=== PATIENT | female | born 1985 | race Caucasian/White ===

== ENCOUNTER 2017-09-28 16:22 | Emergency (ER) | payer OTHER ==
[2017-09-28] MEDS ORDERED: ACETAMINOPHEN 325 MG TABLET (FP) PO ONE (16:34)
--- NOTE | 2017-09-28 16:34 | PDOC ---
Rapid Medical Evaluation Time Seen by Provider: 09/28/17 16:29 Medical Evaluation: Allergies Allergy/AdvReac Type Severity Reaction Status Date / Time No Known Allergies Allergy Verified 09/28/17 16:30 09/28/17 16:30 The patient presents with a chief complaint of: Headache, cough, sore throat, back pain since last night. Admits to subjective fevers at home. 35 weeks . I have performed a brief in-person evaluation of this patient; Pertinent physical exam findings: ambulatory, in no respiratory distress. Afebrile. Throat with minor erythema posteriorly. I have ordered the following: Tylenol, Rapid strep The patient will proceed to the ED for further evaluation.
[2017-09-28 16:35] VITALS: BP 99/66; PULSE 127; TEMP 99.4; BMI 27.8
--- NOTE | 2017-09-28 16:54 | PDOC ---
History of Present Illness - General Chief Complaint: Cold Symptoms Stated Complaint: COLD SYMPTOMS/35 WKS Time Seen by Provider: 09/28/17 16:29 History Source: Patient Exam Limitations: No Limitations - History of Present Illness Initial Comments: 09/28/17 16:50 31 yr female states she is 35 weeks and with 2 days fever, body aches sore throat. no abd pain , neg vaginal discharge bleeding or urinary complaints. no sick contacts. Pt did not have FLU vaccine. Past History - Past Medical History Allergies/Adverse Reactions: Allergies Allergy/AdvReac Type Severity Reaction Status Date / Time No Known Allergies Allergy Verified 09/28/17 16:30 Home Medications: Ambulatory Orders Oseltamivir Phosphate [Tamiflu] 75 mg PO BID #10 capsule 09/28/17 Oseltamivir Phosphate [Tamiflu] 75 mg PO BID #10 capsule 09/28/17 COPD: No Other medical history: DENIES. - Suicide/Smoking/Psychosocial Hx Smoking History: Never smoked *Physical Exam - Vital Signs Last Vital Signs Temp Pulse Resp BP Pulse Ox 99.4 F 127 H 19 99/66 97 09/28/17 16:30 09/28/17 16:30 09/28/17 16:30 09/28/17 16:30 09/28/17 16:30 - Physical Exam General Appearance: Yes: Nourished, Appropriately Dressed HEENT: positive: EOMI, SARAH, Normal Voice Neck: positive: Supple. negative: Rigid Respiratory/Chest: positive: Lungs Clear, Normal Breath Sounds Cardiovascular: positive: Regular Rhythm, Regular Rate Gastrointestinal/Abdominal: positive: Normal Bowel Sounds, Soft, Other (gravid abdomen ) Musculoskeletal: positive: Normal Inspection Extremity: positive: Normal Capillary Refill, Normal Inspection, Normal Range of Motion Integumentary: positive: Normal Color, Dry, Warm Neurologic: positive: Fully Oriented, Alert, Normal Mood/Affect, Normal Response , Motor Strength 5/5 ED Treatment Course - Medications Given in the ED: ED Medications Discontinued Medications Generic Name Dose Route Start Last Admin Trade Name Freq PRN Reason Stop Dose Admin Acetaminophen 650 mg 09/28/17 16:34 09/28/17 16:44 Tylenol - PO 09/28/17 16:35 650 mg ONCE ONE Administration Medical Decision Making - Medical Decision Making 09/28/17 16:52 cc: fever, sore throat body aches 2 days no abd pain, neg vomit or diarrhea, neg urinary complaints pt is 35 weeks , no complications OB at [facility] will check rapid strep pt states active movement , has follow up care at [facility] no abd pain or diarrhea 09/28/17 17:12 *DC/Admit/Observation/Transfer Diagnosis at time of Disposition: Influenza-like illness - Discharge Dispostion Condition at time of disposition: Stable - Prescriptions Prescriptions: Oseltamivir Phosphate [Tamiflu] 75 mg PO BID #10 capsule Oseltamivir Phosphate [Tamiflu] 75 mg PO BID #10 capsule - Referrals Referrals: Milana Conway MD [Primary Care Provider] - - Patient Instructions Additional Instructions: drink at least 2 liters of water a day gatorade, broth , ice pops, regular diet. pleanty of rest at home take tylenol 650mg every 4-6hrs for fever and pain take Tamiflu for 5 days follow with your [employer] Monday for follow up or sooner if any worsening symptoms , return to the ER - Post Discharge Activity
== END 2017-09-28 17:25 | disposition home or self-care (01) ==
LOC: JERFT 16:22
DX: O26.891 Other specified pregnancy related conditions, first trimester (principal); O98.513 Other viral diseases complicating pregnancy, third trimester; J11.1 Influenza due to unidentified influenza virus with other respiratory manifestations; Z3A.35 35 weeks gestation of pregnancy
CPT/HCPCS: 87070; 87430; 99281-25

== ENCOUNTER 2017-11-02 07:35 | Inpatient (IN) | payer OTHER ==
[2017-11-02] MEDS ORDERED: DEXTROSE 5%-LACTATED RINGERS 1,000 ML IV ONE (08:10)
--- NOTE | 2017-11-02 08:31 | HP ---
Past Medical History - Admission Chief Complaint: Labor pain History of Present Illness: 31 yo @ 40 weeks gestation, EDC 11/02/17, admitted for labor pain. Upon admission, she was 4 cm dilated with intact membrane. History Source: Patient Limitations to Obtaining History: No Limitations - Past Medical History ...: 2 ...Para: 1 ...EDC by Vinayak: 11/02/17 - Past Surgical History Past Surgical History: Yes: None Hx Myomectomy: No Hx Transabdominal Cerclage: No - Smoking History Smoking history: Never smoked - Alcohol/Substance Use Hx Alcohol Use: No History of Substance Use: reports: None - Social History History of Recent Travel: No Home Medications - Allergies Allergies/Adverse Reactions: Allergies Allergy/AdvReac Type Severity Reaction Status Date / Time No Known Allergies Allergy Verified 11/02/17 01:25 - Home Medications Home Medications: Ambulatory Orders Vitamins (Sjr) - 1 tab PO DAILY 11/02/17 Review of Systems - Review of Systems Constitutional: reports: No Symptoms Eyes: reports: No Symptoms HENT: reports: No Symptoms Neck: reports: No Symptoms Cardiovascular: reports: No Symptoms Respiratory: reports: No Symptoms Gastrointestinal: reports: No Symptoms Genitourinary: reports: No Symptoms, Pain Breasts: reports: No Symptoms Reported Musculoskeletal: reports: No Symptoms Neurological: reports: No Symptoms Psychiatric: reports: No Symptoms Pain Intensity: 7 Physical Exam - Maternity Constitutional: Yes: Well Nourished Eyes: Yes: Conjunctiva Clear HENT: Yes: Atraumatic Neck: Yes: Supple Cardiovascular: Yes: Regular Rate and Rhythm Lungs: Clear to auscultation - Abdominal Exam/OB Number of Fetuses: Single Presentation: Vertex Contractions: Yes Regularity: Irregular - Vaginal Exam/OB Dilatation (cm): 4 Effacement (%): 90 Amniotic Membrane Status: Intact Station: -2 - Physical Exam Musculoskeletal: Yes: WNL ...Motor Strength: WNL Psychiatric: Yes: Alert, Oriented Problem List - Problems (1) 40 weeks gestation of Code(s): Z3A.40 - 40 WEEKS GESTATION OF Assessment/Plan Active labor Admit to L&D Analgesia as needed Anticipate
[2017-11-02] MEDS ORDERED: BUTORPHANOL TARTRATE 1 MG/ML VIAL IVPUSH PRN (08:34)
[2017-11-02] MEDS ORDERED: PROMETHAZINE HCL 25 MG/1 ML VIAL IVPB PRN (08:35)
[2017-11-02 08:40] VITALS: BMI 30.5
[2017-11-02 09:42] LABS: BASO % 0.4 % (0-2.0); EOS % 0.6 % (0-4.5); HEMATOCRIT 36.5 % (32.4-45.2); LYMPH % 15.5 % (8-40); MCH 34.2 pg (25.7-33.7); MCHC 35.8 g/dl (32.0-36.0); MEAN CELL VOLUME 95.5 fl (80-96); MEAN PLT VOLUME 8.4 fl (7.5-11.1); MONO % 5.9 % (3.8-10.2); NEUT % 77.6 % (42.8-82.8); PLATELET COUNT 245 K/MM3 (134-434); RBC 3.82 M/mm3 (3.60-5.2); RDW 13.6 % (11.6-15.6); WHITE BLOOD COUNT 8.7 K/mm3 (4.0-10.0)
[2017-11-02 09:56] LABS: ANION GAP 5 (8-16); BLOOD UREA NITROGEN 7 mg/dL (7-18); CALCIUM 8.4 mg/dL (8.5-10.1); CHLORIDE 104 mmol/L (98-107); CO2 27 mmol/L (21-32); CREATININE 0.5 mg/dL (0.55-1.02); GLUCOSE,RANDOM 80 mg/dL (74-106); POTASSIUM 3.7 mmol/L (3.5-5.1); SODIUM 136 mmol/L (136-145)
[2017-11-02 10:15] LABS: INR 0.91 (0.82-1.09); PROTHROMBIN TIME (PATIENT) 10.3 SEC (9.98-11.88)
[2017-11-02 10:18] LABS: ACTIVATED PTT 25.1 SECONDS (26.9-34.4)
--- NOTE | 2017-11-02 10:39 | PN ---
Progress Note (short form) - Note Progress Note: 31 yrs , LD 12 yrs go 40 weeks gestation signed out for labor management to Dr bateman by Dr Mcgarry. onset LP since 5.00AM. GBS neg pt requests for pain meds Pelvic exam : Cx : 5 cm/90%/ AROM clear / Vx -1 /OP position FHR 120 cat-1 UC 2-5 min moderate intensity Plan : stadol 2 mg + phenrgan 25 mg iv stat pitocin augmentation started at 11.[address] trial of vaginal delivery Selected Entries 11/02/17 10:17 Temperature 98.2 F Pulse Rate 80 Blood Pressure 106/61 Blood Pressure 76 Mean 1.17 PM uc 2-4 min FHR 118 -120 bpm cat2, sometimes variable decelrations pelvic : cx 8-9 cm/90% edmatous cx /vx +1 station pt discouraged from pushing . Selected Entries 11/02/17 11/02/17 12:00 12:55 Temperature 98.2 F Pulse Rate 75 78 Blood Pressure 103/55 117/68 Laboratory Tests 11/02/17 11/02/17 11/02/17 09:24 09:24 09:24 WBC 8.7 Hgb 13.0 Hct 36.5 Plt Count 245 PT with INR 10.30 INR 0.91 PTT (Actin FS) 25.1 L Sodium 136 Potassium 3.7 Chloride 104 Carbon Dioxide 27 BUN 7 Creatinine 0.5 L Random Glucose 80 RPR Titer Blood Type Antibody Screen 11/02/17 11/02/17 11/02/17 09:24 09:24 10:20 WBC Hgb Hct Plt Count PT with INR INR PTT (Actin FS) Sodium Potassium Chloride Carbon Dioxide BUN Creatinine Random Glucose RPR Titer Nonreactive Blood Type B POSITIVE Antibody Screen Negative 220 PM fully dilated , vx +2 fhr 100-90 pt pushing 2.34Pm Selected Entries 11/02/17 14:00 Temperature 98.0 F Pulse Rate 77
[2017-11-02] MEDS ORDERED: BUTORPHANOL TARTRATE 1 MG/ML VIAL ONE ×2 (10:41)
[2017-11-02] MEDS ORDERED: PROMETHAZINE HCL 25 MG/1 ML VIAL ONE (10:42)
[2017-11-02] MEDS ORDERED: OXYTOCIN 30 UNITS in 0.9% NS 30 UNIT/500 ML INFUS.BAG IVPB SCH (11:15)
[2017-11-02] MEDS: PRENATAL VITAMINS W/ FOLIC ACID TABLET (FP) PO SCH (11:32)
[2017-11-02] MEDS ORDERED: OXYTOCIN 20 UNITS in 0.9% NS 20 UNIT/1,000 ML INFUS.BAG IV ONE (13:16)
[2017-11-02] MEDS ORDERED: LIDOCAINE HCL 1% PRESERVATIVE FREE - 30ML VIAL ONE (13:17)
[2017-11-02] MEDS ORDERED: WITCH HAZEL 50% (TUCKS) 40 PAD/JAR PAD TP PRN (15:09)
[2017-11-02] MEDS ORDERED: BENZOCAINE 28 GM HEMORRHOIDAL OINTMENT TP PRN (15:09)
[2017-11-02] MEDS ORDERED: METHYLERGONOVINE MALEATE 0.2 MG/1 ML AMP IM PRN (15:09)
[2017-11-02] MEDS ORDERED: oxyCODONE HCL 5 MG TABLET PO PRN (15:09)
[2017-11-02] MEDS ORDERED: BISACODYL 10 MG SUPP.RECT RC PRN (15:09)
[2017-11-02] MEDS ORDERED: BENZOCAINE 20% 57 GM BOTTLE TP PRN (15:09)
[2017-11-02] MEDS ORDERED: OXYTOCIN 20 UNITS in 0.9% NS 20 UNIT/1,000 ML INFUS.BAG IV SCH (15:15)
--- NOTE | 2017-11-02 15:18 | PN ---
Delivery - Delivery Vaginal Delivery: No Problems, Spontaneous (baby delievered in vx , Lona position , immediate oral & nasal suction was done before delivery of shoulder . ) Type of Anesthesia: Local Episiotomy/Laceration: 2nd degree (local anesthesia infiltrated , 2 nd degree lacerarion sutured in layers with chr catgut#2/0 . pr exam mucosa & sphincter was intact) EBL (cc): 300 (st cath , urine 250 ml jinny color ) Delivery, Single - Stages of Labor Date 1st Stage Initiatied: 11/02/17 Time 1st Stage Initiated: 05:00 Date 2nd Stage Initiated: 11/02/17 Time 2nd Stage Initiated: 14:20 Date of Delivery: 11/02/17 Time of Delivery: 14:34 Date Placenta Delivered: 11/02/17 Time Placenta Delivered: 14:36 Placenta: Yes: Spontaneous, Uterine Exploration - Condition of Infant Medical Insurance Coding Specialist/Librarian School Present: No Gender: Male Position: Right, OA Total Hours ROM (Hrs/Mins): 4hr 11 min - 1 Minute Total Score: 9 5 Minutes Total Score: 9 - Feeding Plan Initial Plan: Elected not to breastfeed exclusively throughout hospitalization Remarks - Remarks Remarks: 31 yrs , LD12 yrs ago, 40 weeks gestation , gbs neg, admitted in labor pnc at [address] [place] [address] pitocin augmentation given stadol 2 mg + 25 phenrgan for labor analgesia was given x1 intrapartum course was uneventful
[2017-11-02 15:37] LABS: ARTERIAL BLOOD GAS BASE EXCESS -6.3 meq/l (-2-2); ARTERIAL BLOOD GAS PCO2 50.2 mmHg (35-45); ARTERIAL BLOOD GAS PO2 31.3 mmHg (80-100); ARTERIAL BLOOD GAS pH 7.25 (7.35-7.45)
[2017-11-02 15:40] LABS: VENOUS PC02 55.8 mmHg (38-52); VENOUS PH 7.23 (7.32-7.42); VENOUS PO2 32.2 mmHg (28-48)
[2017-11-02] MEDS: FERROUS SO4 325 MG TABLET (FP) PO SCH (17:08)
[2017-11-02] MEDS: IBUPROFEN 600 MG TABLET (FP) PO PRN (20:53)
[2017-11-02] MEDS: ACETAMINOPHEN 325 MG TABLET (FP) PO PRN (20:54)
--- NOTE | 2017-11-03 07:15 | PN ---
Progress Note (short form) - Note Progress Note: ppd 1 doing well, no c/o , voids ok, no excess vaginal bleeding CBC, BMP 11/02/17 09:24 11/02/17 09:24 Last Vital Signs Temp Pulse Resp BP Pulse Ox 98.6 F 76 20 91/58 98 11/03/17 06:00 11/03/17 06:00 11/03/17 06:00 11/03/17 06:00 11/02/17 15:30 uterus firm, non tender lochia mild no calf tenderness plan ambulate, cbc d/c home in am
[2017-11-03 08:39] LABS: BASO % 0.2 % (0-2.0); EOS % 0.7 % (0-4.5); HEMATOCRIT 34.4 % (32.4-45.2); HEMOGLOBIN 11.5 GM/dL (10.7-15.3); LYMPH % 12.8 % (8-40); MCH 32.2 pg (25.7-33.7); MCHC 33.4 g/dl (32.0-36.0); MEAN CELL VOLUME 96.5 fl (80-96); MEAN PLT VOLUME 8.5 fl (7.5-11.1); MONO % 6.7 % (3.8-10.2); NEUT % 79.6 % (42.8-82.8); PLATELET COUNT 220 K/MM3 (134-434); RBC 3.57 M/mm3 (3.60-5.2); RDW 13.9 % (11.6-15.6); WHITE BLOOD COUNT 11.8 K/mm3 (4.0-10.0)
[2017-11-03] MEDS: ACETAMINOPHEN 325 MG TABLET (FP) PO PRN ×2 (10:06→18:13)
[2017-11-03] MEDS: IBUPROFEN 600 MG TABLET (FP) PO PRN ×2 (10:06→18:14)
[2017-11-03] MEDS: PRENATAL VITAMINS W/ FOLIC ACID TABLET (FP) PO SCH (10:07)
[2017-11-03] MEDS: FERROUS SO4 325 MG TABLET (FP) PO SCH ×2 (10:07→18:14)
[2017-11-03 18:34] VITALS: TEMP 98.1
[2017-11-03] MEDS ORDERED: SENNOSIDES/DOCUSATE COMBO (SENNA PLUS) TABLET (UD) PO PRN (22:00)
--- NOTE | 2017-11-04 07:55 | DS ---
Physical Exam-ENOLOGIST Vital Signs: Vital Signs Temperature 98.1 F 11/03/17 21:07 Pulse Rate 82 11/03/17 21:07 Respiratory Rate 18 11/03/17 21:07 Blood Pressure 95/52 11/03/17 21:07 O2 Sat by Pulse Oximetry (%) 98 11/02/17 15:30 Constitutional: Yes: Well Nourished Eyes: Yes: WNL HENT: Yes: WNL Neck: Yes: WNL Cardiovascular: Yes: WNL Respiratory: Yes: WNL Gastrointestinal: Yes: WNL Renal/: Yes: WNL Pelvis: Yes: WNL External Genitalia: Yes: Normal ....Post : Yes: Uterus firm, Uterus non-tender, Moderate lochia rubra ( perineum intact) Breast(s): Yes: WNL (BF , not engorged) Musculoskeletal: Yes: WNL Extremities: Yes: WNL. No: Calf Tenderness Edema: No Integumentary: Yes: WNL Neurological: Yes: WNL, Alert, Oriented ...Motor Strength: WNL Psychiatric: Yes: WNL, Alert, Oriented Labs: CBC, BMP 11/03/17 06:40 11/02/17 09:24 Delivery - Delivery Vaginal Delivery: No Problems, Spontaneous (baby delievered in vx , G[place] position , immediate oral & nasal suction was done before delivery of shoulder . ) Type of Anesthesia: Local Episiotomy/Laceration: 2nd degree (local anesthesia infiltrated , 2 nd degree lacerarion sutured in layers with chr catgut#2/0 . pr exam mucosa & sphincter was intact) EBL (cc): 300 (st cath , urine 250 ml jinny color ) Delivery, Single - Stages of Labor Date 1st Stage Initiatied: 11/02/17 Time 1st Stage Initiated: 05:00 Date 2nd Stage Initiated: 11/02/17 Time 2nd Stage Initiated: 14:20 Date of Delivery: 11/02/17 Time of Delivery: 14:34 Time Placenta Delivered: 14:36 Placenta: Yes: Spontaneous, Uterine Exploration - Condition of Infant Wildlife Refuge Specialist/Technical Support Engineer Present: No Gender: Male Weight: 7 lb 11 oz Position: Right, OA Total Hours ROM (Hrs/Mins): 4hr 11 min - 1 Minute Total Score: 9 5 Minutes Total Score: 9 - [place] Feeding Plan Initial Plan: Elected not to breastfeed exclusively throughout hospitalization Remarks - Remarks Remarks: 31 yrs , LD12 yrs ago, 40 weeks gestation , gbs neg, admitted in labor pnc at [address] [place] [address] pitocin augmentation given stadol 2 mg + 25 phenrgan for labor analgesia was given x1 intrapartum course was uneventful pp course uneventful. discharge today Discharge Summary Reason For Visit: LABOR Current Active Problems 40 weeks gestation of (Acute) Normal spontaneous vaginal delivery (Acute) Condition: Stable - Instructions Diet, Activity, Other Instructions: Post Instructions DIET: Continue good diet high in protein, calcium, and iron rich foods. Drink at least eight (8) glasses of water daily in addition to other fluids. ___ Regular diet MEDICATIONS: Continue vitamins and iron as previously directed. Motrin and Tylenol may be taken for minor discomfort. ACTIVITY: Mild to moderate exercise may be started in two (2) weeks. Take frequent rest periods. Resume normal activity after six (6) week check up. WOUND CARE OF OPERATIVE SITE: Continue use of perineal bottle until vaginal discharge stops. Keep area clean. Shower daily. Keep abdominal wound dry. Report any drainage or redness to physician. Tub baths, tampons and douches are not permitted for [address] Breast feeding & or Bottle feeding BREAST CARE: (For those that are not breast feeding): If engorgement occurs: Wear tight fitting bra. Take Tylenol or Motrin for pain. Apply cold packs (ice in bags to each breast ) FAMILY PLANNING: There are many control alternatives to pursue and they should be discussed at your first office visit. You may resume sexual activity after your six (6) week check up. (Remember, breast feeding is not a contraceptive) NEXT PHYSICIAN APPOINTMENT: Be certain to call for a six (6) week appointment, unless otherwise directed. Call Clinic or got to Emergency Dept if you have any of the following: Heavy vaginal bleeding Painful urination Leg pain Unusual odor noted to vaginal bleeding High fever Red streaking noted on breast Referrals: Lydia Oneill MD [Staff Physician] - Disposition: HOME - Home Medications Comprehensive Discharge Medication List: Ambulatory Orders Vitamins (Sjr) - 1 tab PO DAILY 11/02/17 Acetaminophen [Tylenol .Regular Strength -] 650 mg PO Q3H PRN tablet 11/03/17 Ibuprofen [Motrin -] 200 mg PO Q4H PRN tablet 11/03/17 Vitamins (Sjr) - 1 tab PO DAILY tablet 11/03/17
[2017-11-04 09:06] VITALS: BP 99/60; PULSE 74
[2017-11-04] MEDS: IBUPROFEN 600 MG TABLET (FP) PO PRN (09:31)
[2017-11-04] MEDS: FERROUS SO4 325 MG TABLET (FP) PO SCH (09:31)
[2017-11-04] MEDS: PRENATAL VITAMINS W/ FOLIC ACID TABLET (FP) PO SCH (09:31)
== END 2017-11-04 13:20 | disposition home or self-care (01) | DRG 560 ==
LOC: JLDR 07:35 → J3W 16:15
PROVIDERS: ADMIT Obstetrics & Gynecology; ATTEND Obstetrics & Gynecology
PROC: 10E0XZZ Delivery of Products of Conception, External Approach (ICD-10-PCS; principal; 2017-11-02)
PROC: 0KQM0ZZ Repair Perineum Muscle, Open Approach (ICD-10-PCS; 2017-11-02)
DX: O48.0 Post-term pregnancy (principal); O70.1 Second degree perineal laceration during delivery; Z3A.40 40 weeks gestation of pregnancy; Z37.0 Single live birth
CPT/HCPCS: 36415; 36600; 59409; 80048; 82803; 85025; 85610; 85730; 86593; 86850; 86900; 86901